=== PATIENT | female | born 1985 | race Two or more races ===

== ENCOUNTER 2024-08-18 08:45 | Emergency (ER) | payer MEDICAID ==
[~2024-08-18] VITALS: Ht 167.6 cm; Wt 70.0 kg
[2024-08-18 08:47] VITALS: BP 108/73; PULSE 95; RESP 20; TEMP 99.5; O2SAT 98
== END 2024-08-18 11:40 | disposition left against medical advice (07) ==
LOC: ER 08:45
DX: R05.9 Cough, unspecified (principal); Z53.21 Procedure and treatment not carried out due to patient leaving prior to being seen by health care provider

== ENCOUNTER 2024-08-18 13:55 | Emergency (ER) | payer MEDICAID ==
[~2024-08-18] VITALS: Ht 167.6 cm; Wt 70.0 kg
[2024-08-18 13:58] VITALS: BP 110/85; PULSE 96; RESP 18; TEMP 98.8; O2SAT 100
== END 2024-08-18 18:40 | disposition left against medical advice (07) ==
LOC: ER 13:55
DX: R51.9 Headache, unspecified (principal); Z53.21 Procedure and treatment not carried out due to patient leaving prior to being seen by health care provider